=== PATIENT | male | born 1940 | race Caucasian/White ===

== ENCOUNTER 2021-10-27 09:41 | Inpatient (IN) | payer OTHER ==
[~2021-10-27] VITALS: Ht 190.5 cm; Wt 104.7 kg
--- NOTE | ~2021-10-27 | CON ---
[address] [address] CONSULTATION Name: INEZ WATTS Room: [address] IN M.R.#: [id number] Admission: 10/27/21 Attend Phys: Panda George MD Discharge: Date of : 40 Report #: [id number] THIS REPORT FOR: cc: Marlene Johnson MD, Katrina MD Khosla, Parveen K. MD ~ DATE OF CONSULTATION: 10/27/2021 HISTORY OF PRESENT ILLNESS: This is an 80-year-old male patient who was seen by [facility] earlier today for some facial weakness, which was noticed on the right side. The patient said he is not having any more symptoms. I reviewed those notes and it looks like they had recommended CT angio of the head and neck and MRI. Neither one of them was done, I am not sure why it was not done, I need to find out. The patient said he is feeling back to his baseline. He in fact wanted to go back and wanted to know when he can go back. Apparently, there are some questions of hypotension, which may have been noted, but it is not documented. Blood sugar was okay when it happened. REVIEW OF SYSTEMS: Indicates he has a history of AFib. He is on anticoagulation. There is some question of Parkinson disease and he is on carbidopa/levodopa. I asked him about depression. He denies it, but he is on Lexapro. History is somewhat confusing. He tells me he usually uses either a walker or a wheelchair. I asked him why does he do that, he said he has multiple problems and he has done it for a long time. This is a relevant 14-point review of systems I can get. PAST MEDICAL HISTORY: Positive for Parkinson disease and ambulation difficulty. FAMILY HISTORY: Unremarkable. SOCIAL HISTORY: He says he does not drink alcohol or smoke. PHYSICAL EXAMINATION: NEUROLOGIC: He talks softly, but he was able to tell me what month and what date it is and what hospital he is in. His speech otherwise looks intact. Cranial nerve examination, there is some question of right facial weakness. He moved all 4 extremities. He is weak in the lower extremities and to some extent in the upper extremity. He says he can feel in the lower extremities. The reflexes are somewhat diminished. Plantars are mute. There is no carotid bruit in this patient. CARDIORESPIRATORY: Examination appear unremarkable. HEENT: His hearing and vision looks adequate. VITAL SIGNS: Blood pressure is 184/114, respirations 18, pulse is 77, temperature is 98.5. [place] [address] CONSULTATION Name: INEZ WATTS Room: [address] IN [facility]#: [id number] Admission: 10/27/21 Attend Phys: Panda George MD Discharge: Date of : 40 Report #: [id number] LABORATORY DATA: Indicate white count is 5. Sodium is 143. IMPRESSION AND PLAN: This patient with a chronic problem, was already seen by neurologist. I do not know why CT angiogram was not done or whether it was done, the report is not here. I will try to find out. He has a pacemaker. He does not know whether it is compatible with MRI or not, so I do not know MRI can be done. That may not change much treatment in this patient because he is already on Eliquis, but he will need some imaging study of the blood vessels. His GFR is good and the best I can tell, he is not allergic to dye, but he is allergic to bunch of other things. We will try to find out and if there is a problem, we will get a carotid Doppler. I spent more than 50 minutes of time taking care of this patient today and majority was spent counseling and coordinating. By: 55 lizz Montiel MD /nt
[2021-10-27 09:45] VITALS: BP 157/95
[2021-10-27] MEDS ORDERED: ALPRAZOLAM 0.0.25 MG PO (09:47)
[2021-10-27] MEDS ORDERED: CARBIDOPA-LEVO1 EAC7 PO (09:47)
[2021-10-27] MEDS ORDERED: ELIQUIS5 MG PO (09:48)
[2021-10-27] MEDS ORDERED: LEXAPRO 10 MG T10 M1 PO (09:48)
[2021-10-27] MEDS ORDERED: NEURONTIN 300M300 M2 PO (09:48)
[2021-10-27] MEDS ORDERED: FLORINEF ACETA0.1 MG PO (09:50)
[2021-10-27] MEDS ORDERED: XALATAN2.5 ML OPHTHALMIC (09:50)
[2021-10-27] MEDS ORDERED: FLOMAX0.4 MG PO (09:50)
[2021-10-27] MEDS ORDERED: INBRIJA42 MG INH (09:51)
[2021-10-27] MEDS ORDERED: LIDODERM1 EACH TOP (09:51)
--- NOTE | 2021-10-27 09:58 | NUR ---
PER NURSE AT [facility] PT WAS IN BED ALL DAY YESTERDAY C/O OF WEAKNESS. WHEN PT WOULD GET UP HIS B/P WOULD DROP. PT THIS AM GOT UP FOR BREAKFAST AND HAS NOT STROKE SYMPTOMS. AT 0900 THE NURSE WENT INTO THE PT ROOM AND SHE NOTICED FACIAL DROOPING. DR. ANDREA NOTIFIED.
--- NOTE | 2021-10-27 10:01 | NUR ---
RACHANA [phone]
--- NOTE | 2021-10-27 10:07 | EKG ---
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[employer]amping: : 1940 Requested By: Trev Smith Order Number: [id number] MD: Luis Fernando Dalton Measurements Intervals [place] Rate: 75 P: [place]: QRS: 69 QRSD: 113 T: -22 QT: 426 QTc: 476 Interpretive Statements Afib/flut and V-paced complexes Anteroseptal infarct, age indeterminate No previous ECG available for comparison Electronically Signed On 10-27-2021 10:06:46 [employer] by Luis Fernando Dalton [email or web address] <ELECTRONICALLY SIGNED> By: Luis Fernando Dalton MD, [facility] 10/27/21 1006 7 7 Luis Fernando Dalton MD, [facility] /EPI
[2021-10-27 10:46] LABS: ABSOLUTE LYMPHOCYTES 1.3 thou/uL (0.8-5.3); ABSOLUTE MONOCYTES 0.5 thou/uL (0.0-1.2); ABSOLUTE NEUTROPHILS 3.1 thou/uL (1.6-8.1); BASOPHILS 0.8 %; EOSINOPHILS 0.8 %; HEMATOCRIT 41.6 % (42.0-52.0); HEMOGLOBIN 13.5 gm/dL (14.0-18.0); LYMPHOCYTES 26.2 %; MCH 30.2 pg (26.0-34.0); MCHC 32.5 g/dL (28.0-37.0); MCV 92.9 fL (80.0-100.0); MONOCYTES 10.3 %; MPV 6.9 fl. (7.2-11.1); NUCLEATED RBCS 0 /100WBC; PLATELET COUNT* 169 thou/uL (150-400); POLYS 61.9 %; RBC 4.47 mil/uL (4.50-6.00); RDW-CV 14.3 % (10.5-14.5)
[2021-10-27 10:57] LABS: CALCIUM 8.6 mg/dL (8.5-10.1); CREATININE 1.2 mg/dL (0.6-1.3); POTASSIUM 4.3 mmol/L (3.5-5.1)
[2021-10-27 10:58] LABS: INR 1.1; PROTIME 10.9 Seconds (9.20-11.50)
[2021-10-27 11:01] LABS: ALBUMIN 3.1 g/dL (3.4-5.0); TOTAL BILIRUBIN 0.7 mg/dL (<0.1-1.0); TOTAL PROTEIN 6.3 g/dL (6.4-8.2)
[2021-10-27] MEDS ORDERED: CARBIDOPA-LEVO1 EA10 PO (12:04)
--- NOTE | 2021-10-27 12:07 | NUR ---
LATRELL DUPREE REGARDING HOME MEDICATIONS TO BE RESTARTED IN HOSPITAL.
--- NOTE | 2021-10-27 16:47 | 2DMMODE ---
[place] [address] 2 D/M-MODE ECHOCARDIOGRAM Name: INEZ WATTS Room: [place] [address] ADM [place]#: [id number] Admission: 10/27/21 Attend Phys: Panda George, Discharge: Date of : 40 Date of Service: 10/27/21 1647 Report #: [id number] THIS REPORT FOR: cc: Marlene Johnson MD, Katrina MD Blick,Luis Fernando Brasher MD [facility] ~ APPROVED REPORT Study performed: 10/27/2021 15:10:34 EXAM: Comprehensive 2D, Doppler, and color-flow Echocardiogram Patient Location: In-Patient Room #: ER Status: routine BSA: 2.33 HR: 76 bpm BP: 146/87 mmHg Rhythm: NSR Other Information Study Quality: Good Indications CVA/TIA Echo Enhancing Agent Indication: Rule out Shunt Agent(s) / Amount(s) Used: Agitated Saline 10 cc 2D Dimensions IVSd: 17.05 (7-11mm) LVOT Diam: 24.44 (18-24mm) LVDd: 45.51 mm PWd: 14.61 (7-11mm) Ascending Ao: 39.28 (22-36mm) LVDs: 30.48 (25-40mm) Aortic Root: 39.45 mm Volumes Left Atrial Volume (Systole) LA ESV Index: 29.90 mL/m2 Aortic Valve AoV Peak Lauri.: 0.93 m/s AO Peak Gr.: 3.45 mmHg LVOT Max P.27 mmHg AO Mean Gr.: 1.92 mmHg LVOT Mean P.57 [place] [address] 2 D/M-MODE ECHOCARDIOGRAM Name: MARINOSUNDARINEZ HOWARD Darrion Room: [address] IN [facility]#: [id number] Admission: 10/27/21 Attend Phys: Panda George, Discharge: Date of : 40 Date of Service: 10/27/21 1647 Report #: [id number] LVOT Max V: 0.90 m/s AO V2 VTI: 19.66 cm LVOT Mean V: 0.57 m/s VALENTINE (VTI): 4.75 cm2 LVOT V1 VTI: 19.89 cm TDI Medial E' Lauri.: 0.11 m/s Lateral E' Lauri.: 0.17 m/s Pulmonary Valve PV Peak Lauri.: 0.82 m/s PV Peak Gr.: 2.66 mmHg Tricuspid Valve RAP Estimate: 5.00 mmHg TR Peak Gr.: 27.62 mmHg RVSP: 32.00 mmHg PA Pressure: 32.00 mmHg Left Ventricle The left ventricle is normal size. There is normal LV segmental wall motion. Mild concentric left ventricular hypertrophy. Left ventricular systolic function is normal. The left ventricular ejection fraction is within the normal range. LVEF is 55-60%. This study is not technically sufficient to allow evaluation of the LV diastolic function due to atrial fibrillation. Right Ventricle The right ventricle is normal size. The right ventricular systolic function is normal. Pacemaker lead is present in the right ventricle. Atria Left atrium is mildly dilated. The interatrial septum is intact with no evidence for an atrial septal defect. The right atrium size is normal. Aortic Valve The aortic valve is normal in structure. Mild aortic regurgitation. There is no aortic valvular stenosis. Mitral Valve There is mitral annular calcification. The mitral valve is normal in structure. Mild mitral regurgitation. No evidence of mitral valve stenosis. Tricuspid Valve The tricuspid valve is normal in structure. Trace tricuspid regurgitation. estimated pa pressure 30 [place] [address] 2 D/M-MODE ECHOCARDIOGRAM Name: INEZ WATTS Room: [address] IN [facility]#: [id number] Admission: 10/27/21 Attend Phys: Panda George, Discharge: Date of : 40 Date of Service: 10/27/21 1647 Report #: [id number] Pulmonic Valve The pulmonary valve is normal in structure. Trace pulmonic regurgitation. Great Vessels Aortic root is mildly dilated. IVC is normal in size and collapses >50% with inspiration. Pericardium There is no pericardial effusion. <Conclusion> Mild concentric left ventricular hypertrophy. LVEF is 55-60%. Left atrium is mildly dilated. Mild aortic regurgitation. Mild mitral regurgitation. The interatrial septum is intact with no evidence for an atrial septal defect. Aortic root is mildly dilated. <ELECTRONICALLY SIGNED> By: Luis Fernando Dalton MD, [facility] 10/27/211646 46 46 Luis Fernando Dalton MD, FACC /INF
[2021-10-27 17:39] VITALS: BP 178/107
[2021-10-27 17:42] VITALS: BP 189/114
[2021-10-27 20:33] VITALS: BP 184/114
[2021-10-28] VITALS: BP 121/72
[2021-10-28 04:00] VITALS: BP 138/92
[2021-10-28 06:06] LABS: GLYCOHEMOGLOBIN (HGB A1C) 5.5 % (4.8-5.6)
--- NOTE | 2021-10-28 06:18 | NUR ---
T/C FROM DR. KOSTA STRICKLAND WITH NEW ORDERS FOR CAROTID DOPPLER AND START NS @ 100ML/HR. DISCUSSED BEDSIDE SWALLOW & NIH SCORE OF 2, DOCTOR STATED OK TO TAKE MEDS WHILE NPO THIS NURSE DID BEDSIDE SWALLOW AT APPROXIMATELY 2100, PT PASSED WITH NO COMPLICATIONS, NIH SCORE OF 2. SEE ACCOMPANIED CHARTING.
[2021-10-28 08:10] VITALS: BP 170/110
[2021-10-28 08:26] LABS: HEMATOCRIT 39.9 % (42.0-52.0); HEMOGLOBIN 12.9 gm/dL (14.0-18.0); MCH 30.2 pg (26.0-34.0); MCHC 32.4 g/dL (28.0-37.0); MCV 93.3 fL (80.0-100.0); NUCLEATED RBCS 0 /100WBC; PLATELET COUNT* 175 thou/uL (150-400); RBC 4.28 mil/uL (4.50-6.00); RDW-CV 14.5 % (10.5-14.5)
[2021-10-28 08:45] VITALS: BP 145/95
[2021-10-28 08:53] LABS: CALCIUM 8.1 mg/dL (8.5-10.1); POTASSIUM 4.2 mmol/L (3.5-5.1)
[2021-10-28 09:25] LABS: CHOLESTEROL 168 mg/dL (<200); HDL CHOLESTEROL 63 mg/dL (>40); LDL CHOLESTEROL 89 mg/dL (<100); TC:HDL 2.7 Ratio (Not establshd); TRIGLYCERIDE 81 mg/dL (<150); VLDL 16 mg/dL (<40)
[2021-10-28 09:26] LABS: SERUM ASSESSMENT Clear
[2021-10-28 10:22] LABS: ABSOLUTE LYMPHOCYTES 0.6 thou/uL (0.8-5.3); ABSOLUTE MONOCYTES 0.3 thou/uL (0.0-1.2); ABSOLUTE NEUTROPHILS 3.1 thou/uL (1.6-8.1); PLATELET ESTIMATE ADEQUATE
[2021-10-28 12:00] VITALS: BP 127/79
[2021-10-28 12:02] VITALS: BP 101/58
== END 2021-10-28 15:34 | disposition home or self-care (01) | DRG 69 ==
LOC: M.ERS 09:41 → M.TBA-ER 10:42 → M.2W 17:39
PROVIDERS: Emergency Medicine; ADMIT Internal Medicine; ATTEND Internal Medicine
DX: G45.9 Transient cerebral ischemic attack, unspecified (principal); E44.1 Mild protein-calorie malnutrition; G90.9 Disorder of the autonomic nervous system, unspecified; R29.810 Facial weakness; I48.91 Unspecified atrial fibrillation; G20 Parkinson's disease; I95.1 Orthostatic hypotension; Z66 Do not resuscitate; Z20.822 Contact with and (suspected) exposure to COVID-19; Z90.49 Acquired absence of other specified parts of digestive tract; Z88.0 Allergy status to penicillin; Z88.8 Allergy status to other drugs, medicaments and biological substances; Z88.6 Allergy status to analgesic agent; Z91.02 Food additives allergy status; Z68.28 Body mass index [BMI] 28.0-28.9, adult; Z79.01 Long term (current) use of anticoagulants; Z95.0 Presence of cardiac pacemaker